=== PATIENT | female | born 1935 | race Hispanic/Latino ===

== ENCOUNTER → 2020-12-16 | Outpatient (CLI) | payer OTHER, MEDICARE ==
[~2020-12-16] MED LIST: ALEN10TA27 PO; ASPI-556 PO; ATEN25TA PO; BACL10TA PO; CALC-484 PO; FENO160T16 PO; FERR-63 PO; GABA-531 PO; HYDR25TA PO; MECL-129 PO; MESA250C2 PO; METF-446 PO; OMEP20CA12 PO; POT25TAB5 PO; ROPI1TAB13 PO; SIMV-43 PO; SOLI10TA PO; VITA1TAB22 PO
== END | disposition home or self-care (01) ==
LOC: OIH 10:17
PROVIDERS: ATTEND Internal Medicine
DX: M19.042 Primary osteoarthritis, left hand (principal); M19.041 Primary osteoarthritis, right hand; M19.071 Primary osteoarthritis, right ankle and foot; M19.072 Primary osteoarthritis, left ankle and foot; M25.775 Osteophyte, left foot; M25.774 Osteophyte, right foot; I70.8 Atherosclerosis of other arteries
CPT/HCPCS: 73630

== ENCOUNTER 2021-12-23 18:04 | Emergency (ER) | payer OTHER, MEDICARE ==
[~2021-12-23] VITALS: Ht 165.1 cm; Wt 64.0 kg
[2021-12-23 19:05] LABS: APPEARANCE,URINE Clear (CLEAR); BILIRUBIN,URINE Negative (NEGATIVE); COLOR,URINE Dark Yellow (YELLOW); GLUCOSE, URINE (UA) Negative (NEGATIVE); KETONES,URINE Trace mg/dL (NEGATIVE); LEUKOCYTE ESTERASE ,URINE Negative (NEGATIVE); NITRATE,URINE Negative (NEGATIVE); OCCULT BLOOD,URINE Negative (NEGATIVE); PH,URINE 5.5 (5.0-8.0); PROTEIN,URINE Negative (NEGATIVE)
[2021-12-23 19:26] LABS: BACTERIA,URINE Few /HPF (None Seen); RBC,URINE 0-1 /HPF (0-1); SQUAMOUS EPITHELIAL CELL,UR Few /HPF (0-2); WBC,URINE 0-1 /HPF (0-1)
[2021-12-23] MEDS ORDERED: HYDROCODONE/ACETAMINOPHEN 5/325 MG TAB PO ONE (19:30)
[2021-12-23 19:46] LABS: BASOPHILS % (AUTO) 0.4 % (0.0-5.0); EOSINOPHILS % (AUTO) 1.2 % (0.0-8.0); HEMATOCRIT 35.6 % (36-48); LYMPHOCYTES % (AUTO) 14.4 % (21.0-51.0); MEAN CORPUSCULAR HEMOGLOBIN 30.2 pg (27.0-33.0); MEAN CORPUSCULAR VOLUME 94.2 fL (79-99); MONOCYTES % (AUTO) 12.3 % (3.0-13.0); NEUTROPHILS % (AUTO) 71.2 % (40.0-77.0); PLATELET COUNT (AUTO) 187 K/uL (130-400); RED BLOOD CELL COUNT(AUTO) 3.78 MIL/uL (4.00-5.50); RED CELL DISTRIBUTION WIDTH 13.5 % (11.0-15.5); WHITE BLOOD COUNT (AUTO) 7.3 K/uL (4.8-10.8)
[2021-12-23 19:53] LABS: CREATININE 0.6 mg/dL (0.5-1.5); POTASSIUM 4.3 mmol/L (3.5-5.1)
[2021-12-23 19:54] LABS: PROTHROMBIN TIME 10.9 SEC (9.6-11.6)
[2021-12-23 19:56] LABS: PARTIAL THROMBOPLASTIN TIME 23.4 SEC (26.3-35.5)
[2021-12-23 20:00] LABS: ALBUMIN 2.6 g/dL (3.5-5.0); BILIRUBIN,TOTAL 0.5 mg/dL (0.2-1.0); TOTAL PROTEIN, SERUM 6.1 g/dL (6.0-8.3)
[2021-12-23 21:15] VITALS: BP 141/63
== END 2021-12-23 21:36 | disposition home or self-care (01) ==
LOC: EDH 18:04
DX: M16.0 Bilateral primary osteoarthritis of hip (principal); M17.12 Unilateral primary osteoarthritis, left knee; I10 Essential (primary) hypertension; M81.0 Age-related osteoporosis without current pathological fracture; E11.9 Type 2 diabetes mellitus without complications; Z79.899 Other long term (current) drug therapy; Z79.84 Long term (current) use of oral hypoglycemic drugs; Z79.82 Long term (current) use of aspirin; Z90.49 Acquired absence of other specified parts of digestive tract; Z98.890 Other specified postprocedural states; W19.XXXA Unspecified fall, initial encounter; Y93.89 Activity, other specified; Y92.098 Other place in other non-institutional residence as the place of occurrence of the external cause; Y99.8 Other external cause status
CPT/HCPCS: 36415; 71045; 73502; 73562; 80053; 81001; 84484; 85025; 85610; 85730; 93005

== ENCOUNTER → 2022-11-30 | Outpatient (CLI) | payer OTHER, MEDICARE ==
[~2022-11-30] MED LIST changes: +ACET-2079 PO; -ALEN10TA27 PO; -ASPI-556 PO; -ATEN25TA PO; +AZAT100T2 PO; -BACL10TA PO; -CALC-484 PO; -FENO160T16 PO; -FERR-63 PO; +FEXO-263 PO; +FURO20TA4 PO; -GABA-531 PO; +GABA-533 PO; -HYDR25TA PO; -MECL-129 PO; -MESA250C2 PO; -METF-446 PO; -OMEP20CA12 PO; +POLY17PO4 PO; -POT25TAB5 PO; -ROPI1TAB13 PO; -SIMV-43 PO; -SOLI10TA PO; -VITA1TAB22 PO
[2022-11-30 12:55] LABS: ALBUMIN 3.7 g/dL (3.5-5.0); CREATININE 0.7 mg/dL (0.5-1.5); POTASSIUM 4.3 mmol/L (3.5-5.1); TOTAL PROTEIN, SERUM 6.6 g/dL (6.0-8.3)
== END | disposition home or self-care (01) ==
LOC: LAB 09:54
PROVIDERS: ATTEND Internal Medicine Cardiovascular Disease
DX: E78.5 Hyperlipidemia, unspecified (principal)
CPT/HCPCS: 36415; 80053; 80061

== ENCOUNTER → 2023-03-22 | Outpatient (CLI) | payer OTHER, MEDICARE | END | disposition home or self-care (01) | LOC: RAH 11:23 | PROVIDERS: ATTEND Family Medicine | DX: R60.9 Edema, unspecified (principal) | CPT/HCPCS: 93971 ==

== ENCOUNTER 2023-12-14 21:46 | Emergency (ER) | payer OTHER, MEDICARE ==
[~2023-12-14] VITALS: Ht 165.1 cm; Wt 63.0 kg
[~2023-12-14 21:46] MED LIST changes: -GABA-533 PO; +GABA-534 PO
[2023-12-15 00:10] VITALS: BP 148/82; PULSE 88; RESP 16; O2SAT 99
[2023-12-15] MEDS: HYDROCODONE/ACETAMINOPHEN 5/325 MG TAB ONE (00:15)
[2023-12-15] MEDS ORDERED: HYDROCODONE/ACETAMINOPHEN 5/325 MG TAB PO ONE (09:00)
== END 2023-12-15 04:08 | disposition home or self-care (01) ==
LOC: EDH 21:46
DX: S52.501A Unspecified fracture of the lower end of right radius, initial encounter for closed fracture (principal); Z79.624 Long term (current) use of inhibitors of nucleotide synthesis; Z79.631 Long term (current) use of antimetabolite agent; Z90.49 Acquired absence of other specified parts of digestive tract; Z90.710 Acquired absence of both cervix and uterus; W18.39XA Other fall on same level, initial encounter; Y93.89 Activity, other specified; Y92.89 Other specified places as the place of occurrence of the external cause; Y99.8 Other external cause status
CPT/HCPCS: 29125; 73110